=== PATIENT | male | born 1970 | race Hispanic/Latino ===

== ENCOUNTER 2016-11-16 09:35 | Day surgery (SDC) | payer BC ==
[~2016-11-16 09:35] MED LIST: LIDOCAINE W/ SODIUM BICARB 0.5 ML SYR ONE; Lactated Ringers 0 ML PRIMARY IV ONE; Lactated Ringers 1,000 ML PRIMARY IV ONE
[2016-11-16] MEDS ORDERED: BUPIVACAINE 0.5% W/ EPI - 10 ML VIAL ONE (09:45)
[2016-11-16] MEDS ORDERED: MIDAZOLAM 5 MG/1 ML ONE (10:53)
[2016-11-16] MEDS ORDERED: fentaNYL Inj 100 MCG/2 ML VIAL ONE (10:54)
[2016-11-16] MEDS ORDERED: KETAMINE 100 MG/1 ML - 5 ML ONE (11:06)
[2016-11-16] MEDS ORDERED: Lactated Ringers 1,000 ML PRIMARY IV ONE (11:33)
[2016-11-16] MEDS ORDERED: NORMAL SALINE 10 ML SYRINGE FLUSH IVP PRN (11:35)
[2016-11-16] MEDS ORDERED: KETOROLAC 30 MG/1 ML VIAL IVP PRN (11:35)
[2016-11-16] MEDS ORDERED: oxyCODONE/APAP 7.5/325 Tab 1 TAB TAB PO PRN (11:35)
--- NOTE | 2016-11-16 11:35 | GEN.OPNOTE ---
Colonoscopy Procedure Note Surgery Date: 11/16/16 Preoperative Diagnosis: History of rectal polyps Postoperative Diagnosis: Normal-appearing colon. Rectal fissure. Pigmented perianal skin lesions Procedure: Colonoscopy. Lateral internal sphincterotomy. Skin biopsy Surgeon: Vinny Kelly MD Anesthesia Provider: Watson Coon CRNA Anesthesia Type: Local, MAC Indications: This is a patient has a known history of colon polyps. He needs a colonoscopy is in 5 years since his last colonoscopy. He developed rectal bleeding and severe rectal pain. Although I cannot see a rectal fissure by history most likely had a rectal fissure this be determined at time his colonoscopy. He also has pigmented perianal skin the need a biopsy to rule out melanoma Findings: Prep : Excellent Cecum : Scope advanced all way to the cecum. Ileocecal valve clearly identified. He had normal-appearing cecum Ascending : Ascending colons within normal limits Transverse : Transverse colon had no abnormal pathology Sigmoid : Descending; a free from disease Rectum : Rectum has internal hemorrhoids not actively bleeding Digital Rectal Exam : Patient does have a posterior rectal fissure and the pigmented skin lesions A lubricated flexible colonoscope was inserted and passed to the blind end of the cecum. Additional Details: After the colonoscopy the patient was repositioned dorsolithotomy position. Timeout performed per protocols. He prepped and draped in sterile fashion. I put a endoscope to tying the internal sphincters I can palpate a better. I infiltrated quarter percent Marcaine for pain control. Made a small incision and did a closed lateral internal sphincterotomy on the left . I could actually feel the band. And the sphincter relaxed. Pressure was held for hemostasis. I then identified the most suspicious-looking pigmented skin lesion infiltrated local anesthetic and did elliptical skin incision biopsy. Closed this with 2-0 chromic simple suture Vaseline gauze is then place for hemostasis and pressure. Sterile dressings were applied.
[2016-11-16 13:26] VITALS: RESP 16; TEMP 98.7
== END 2016-11-16 13:00 | disposition home or self-care (01) ==
LOC: SDSC 09:35 → EDSTATUS 10:34 → SDSC 13:00
PROVIDERS: ATTEND Surgery
DX: Z86.010 Personal history of colon polyps (principal); K62.89 Other specified diseases of anus and rectum; L81.8 Other specified disorders of pigmentation
CPT/HCPCS: 11100; 45378; J2704; J3010; J2250; J7120